=== PATIENT | male | born 1995 ===

== ENCOUNTER 2018-02-24 13:31 | Outpatient (CLI) | payer OTHER ==
[2018-02-24 13:39] LABS: Hematocrit 47.9 % (35.5-45.6); Hemoglobin 16.2 gm/dl (11.8-15.2); Mean Corpuscular HGB Conc 34 % (32-34); Mean Corpuscular Hemoglobin 31 pg (28-32); Mean Corpuscular Volume 91 fl (84-94); Platelet Count 177 K/mm3 (140-440); Red Blood Count 5.28 M/mm3 (3.65-5.03); Red Cell Distribution Width 13.4 % (13.2-15.2)
[2018-02-24 13:51] LABS: INR 1.24 (0.87-1.13)
[2018-02-24 15:42] LABS: Total Cells Counted 100
[2018-02-24 15:44] LABS: Anisocytosis 1+; Large Platelets Few; Ovalocytes Rare; Platelet Estimate Consistent w Auto; Poikilocytosis Few
== END 2018-02-24 13:32 | disposition home or self-care (01) ==
LOC: LAB 13:31
PROVIDERS: ATTEND Student in an Organized Health Care Education/Training Program
DX: Z79.01 Long term (current) use of anticoagulants (principal)
CPT/HCPCS: 36415; 85007; 85025; 85610